=== PATIENT | male | born 1965 | race American Indian/Alaskan Native ===

== ENCOUNTER 2017-06-17 22:08 | Emergency (ER) | payer OTHER ==
[2017-06-17 22:48] VITALS: BP 141/73
[2017-06-17] MEDS ORDERED: MOTRIN PO ONE (23:54)
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
== END 2017-06-18 00:36 | disposition home or self-care (01) ==
LOC: ED 22:08
DX: M54.5 Low back pain (principal); M62.838 Other muscle spasm; E11.9 Type 2 diabetes mellitus without complications
CPT/HCPCS: 99282

== ENCOUNTER 2021-05-29 07:00 | Emergency (ER) | payer OTHER ==
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
[2021-05-29 09:11] VITALS: BP 149/88
== END 2021-05-29 09:11 | disposition home or self-care (01) ==
LOC: ED 07:00
DX: S16.1XXA Strain of muscle, fascia and tendon at neck level, initial encounter (principal); S39.012A Strain of muscle, fascia and tendon of lower back, initial encounter; S20.212A Contusion of left front wall of thorax, initial encounter; R51.9 Headache, unspecified; E11.9 Type 2 diabetes mellitus without complications; V87.7XXA Person injured in collision between other specified motor vehicles (traffic), initial encounter; Y93.89 Activity, other specified; Y92.488 Other paved roadways as the place of occurrence of the external cause; Y99.8 Other external cause status
CPT/HCPCS: 99282